=== PATIENT | male | born 1960 | race Caucasian/White ===

== ENCOUNTER → 2016-06-27 | Outpatient (CLI) | payer OTHER ==
[~2016-06-27] VITALS: Ht 193 cm; Wt 90.6 kg
[~2016-06-27] MED LIST: CEPH500 PO; FOLI1 PO; GABA-531 PO; HYDR25TA PO; LISI-662 PO; METO-325 PO; OMEP20 PO; SULF1TAB42 PO; TAPE50TA2 PO; TNFMISC
[2016-06-27 09:17] VITALS: BP 157/80
== END | disposition home or self-care (01) ==
LOC: HBOWC 08:41
PROVIDERS: ATTEND Emergency Medicine
DX: L97.521 Non-pressure chronic ulcer of other part of left foot limited to breakdown of skin (principal); L84 Corns and callosities; I10 Essential (primary) hypertension; G62.9 Polyneuropathy, unspecified; B35.1 Tinea unguium; I25.10 Atherosclerotic heart disease of native coronary artery without angina pectoris; F32.9 Major depressive disorder, single episode, unspecified; Z87.891 Personal history of nicotine dependence; M21.41 Flat foot [pes planus] (acquired), right foot; F10.10 Alcohol abuse, uncomplicated; M79.675 Pain in left toe(s)
CPT/HCPCS: 11055; 97597

== ENCOUNTER → 2016-07-05 | Outpatient (CLI) | payer OTHER ==
[2016-07-05 13:53] VITALS: BP 134/73
== END | disposition home or self-care (01) ==
LOC: HBOWC 10:59
PROVIDERS: ATTEND Emergency Medicine
DX: L97.521 Non-pressure chronic ulcer of other part of left foot limited to breakdown of skin (principal); I10 Essential (primary) hypertension; I73.9 Peripheral vascular disease, unspecified; G62.9 Polyneuropathy, unspecified; F32.9 Major depressive disorder, single episode, unspecified; L84 Corns and callosities; B35.1 Tinea unguium; Z87.891 Personal history of nicotine dependence; F10.10 Alcohol abuse, uncomplicated; M21.41 Flat foot [pes planus] (acquired), right foot
CPT/HCPCS: 97597

== ENCOUNTER → 2016-07-19 | Outpatient (CLI) | payer OTHER ==
[2016-07-19 11:37] VITALS: BP 123/77
== END | disposition home or self-care (01) ==
LOC: HBOWC 11:20
PROVIDERS: ATTEND Emergency Medicine
DX: L97.521 Non-pressure chronic ulcer of other part of left foot limited to breakdown of skin (principal); L84 Corns and callosities; I10 Essential (primary) hypertension; I25.10 Atherosclerotic heart disease of native coronary artery without angina pectoris; I73.9 Peripheral vascular disease, unspecified; B35.1 Tinea unguium; M21.41 Flat foot [pes planus] (acquired), right foot; F32.9 Major depressive disorder, single episode, unspecified; Z87.891 Personal history of nicotine dependence; F10.10 Alcohol abuse, uncomplicated
CPT/HCPCS: 97597

== ENCOUNTER → 2016-08-01 | Outpatient (CLI) | payer OTHER ==
[2016-08-01 11:26] VITALS: BP 117/62
== END | disposition home or self-care (01) ==
LOC: HBOWC 10:55
PROVIDERS: ATTEND Emergency Medicine Undersea and Hyperbaric Medicine
DX: L97.521 Non-pressure chronic ulcer of other part of left foot limited to breakdown of skin (principal); F10.10 Alcohol abuse, uncomplicated; L84 Corns and callosities; I10 Essential (primary) hypertension; F32.9 Major depressive disorder, single episode, unspecified; I73.9 Peripheral vascular disease, unspecified; B35.1 Tinea unguium; G62.9 Polyneuropathy, unspecified; Z87.891 Personal history of nicotine dependence
CPT/HCPCS: 97597

== ENCOUNTER → 2016-08-16 | Outpatient (CLI) | payer OTHER ==
[~2016-08-16] MED LIST changes: -CEPH500 PO; -SULF1TAB42 PO
[2016-08-16 11:14] VITALS: BP 132/78
== END | disposition home or self-care (01) ==
LOC: HBOWC 10:40
PROVIDERS: ATTEND Emergency Medicine
DX: L97.521 Non-pressure chronic ulcer of other part of left foot limited to breakdown of skin (principal); G62.9 Polyneuropathy, unspecified; L84 Corns and callosities; B35.1 Tinea unguium; I10 Essential (primary) hypertension; F32.9 Major depressive disorder, single episode, unspecified; I73.9 Peripheral vascular disease, unspecified; F10.10 Alcohol abuse, uncomplicated; M21.41 Flat foot [pes planus] (acquired), right foot; Z87.891 Personal history of nicotine dependence
CPT/HCPCS: 97597

== ENCOUNTER → 2016-08-31 | Outpatient (CLI) | payer OTHER ==
[~2016-08-31] MED LIST changes: +SULF1TAB42 PO
[2016-08-31 10:13] VITALS: BP 129/79
== END | disposition home or self-care (01) ==
LOC: HBOWC 10:12
PROVIDERS: ATTEND Emergency Medicine
DX: L97.521 Non-pressure chronic ulcer of other part of left foot limited to breakdown of skin (principal); S90.424D Blister (nonthermal), right lesser toe(s), subsequent encounter; F10.10 Alcohol abuse, uncomplicated; I10 Essential (primary) hypertension; I73.9 Peripheral vascular disease, unspecified; G62.9 Polyneuropathy, unspecified; L84 Corns and callosities; B35.1 Tinea unguium; X58.XXXD Exposure to other specified factors, subsequent encounter; Z87.891 Personal history of nicotine dependence
CPT/HCPCS: 97597

== ENCOUNTER → 2016-09-14 | Outpatient (CLI) | payer OTHER ==
[~2016-09-14] MED LIST changes: -SULF1TAB42 PO
[2016-09-14 10:18] VITALS: BP 127/71
== END | disposition home or self-care (01) ==
LOC: HBOWC 09:52
PROVIDERS: ATTEND Emergency Medicine
DX: L97.521 Non-pressure chronic ulcer of other part of left foot limited to breakdown of skin (principal); S90.424D Blister (nonthermal), right lesser toe(s), subsequent encounter; L84 Corns and callosities; B35.1 Tinea unguium; F10.10 Alcohol abuse, uncomplicated; I10 Essential (primary) hypertension; I73.9 Peripheral vascular disease, unspecified; F32.9 Major depressive disorder, single episode, unspecified; M21.41 Flat foot [pes planus] (acquired), right foot; Z87.891 Personal history of nicotine dependence; X58.XXXD Exposure to other specified factors, subsequent encounter
CPT/HCPCS: 97597

== ENCOUNTER → 2016-09-28 | Outpatient (CLI) | payer OTHER ==
[2016-09-28 10:23] VITALS: BP 137/72
== END | disposition home or self-care (01) ==
LOC: HBOWC 09:51
PROVIDERS: ATTEND Emergency Medicine
DX: L97.521 Non-pressure chronic ulcer of other part of left foot limited to breakdown of skin (principal); B35.1 Tinea unguium; L84 Corns and callosities; I10 Essential (primary) hypertension; I73.9 Peripheral vascular disease, unspecified; F32.9 Major depressive disorder, single episode, unspecified; F10.10 Alcohol abuse, uncomplicated; M21.41 Flat foot [pes planus] (acquired), right foot; Z87.891 Personal history of nicotine dependence
CPT/HCPCS: 97597

== ENCOUNTER → 2016-10-12 | Outpatient (CLI) | payer OTHER ==
[~2016-10-12] MED LIST changes: +SULF1TAB42 PO
[2016-10-12 10:19] VITALS: BP 145/76
== END | disposition home or self-care (01) ==
LOC: HBOWC 09:29
PROVIDERS: ATTEND Emergency Medicine
DX: L97.521 Non-pressure chronic ulcer of other part of left foot limited to breakdown of skin (principal); I10 Essential (primary) hypertension; F32.9 Major depressive disorder, single episode, unspecified; L84 Corns and callosities; M21.41 Flat foot [pes planus] (acquired), right foot; Z87.891 Personal history of nicotine dependence; F10.10 Alcohol abuse, uncomplicated
CPT/HCPCS: 97597

== ENCOUNTER → 2016-10-26 | Outpatient (CLI) | payer OTHER ==
[~2016-10-26] MED LIST changes: -SULF1TAB42 PO
[2016-10-26 09:28] VITALS: BP 142/81
== END | disposition home or self-care (01) ==
LOC: HBOWC 08:57
PROVIDERS: ATTEND Emergency Medicine
DX: L97.521 Non-pressure chronic ulcer of other part of left foot limited to breakdown of skin (principal); M21.41 Flat foot [pes planus] (acquired), right foot; F32.9 Major depressive disorder, single episode, unspecified; B35.1 Tinea unguium; I73.9 Peripheral vascular disease, unspecified; Z87.891 Personal history of nicotine dependence; F10.10 Alcohol abuse, uncomplicated; L84 Corns and callosities
CPT/HCPCS: 97597

== ENCOUNTER → 2016-11-09 | Outpatient (CLI) | payer OTHER ==
[2016-11-09 11:22] VITALS: BP 111/65
== END | disposition home or self-care (01) ==
LOC: HBOWC 09:46
PROVIDERS: ATTEND Emergency Medicine
DX: L97.521 Non-pressure chronic ulcer of other part of left foot limited to breakdown of skin (principal); L84 Corns and callosities; G62.9 Polyneuropathy, unspecified; F10.10 Alcohol abuse, uncomplicated; M21.41 Flat foot [pes planus] (acquired), right foot; F32.9 Major depressive disorder, single episode, unspecified; I73.9 Peripheral vascular disease, unspecified; Z87.891 Personal history of nicotine dependence; B35.1 Tinea unguium; I10 Essential (primary) hypertension
CPT/HCPCS: 97597

== ENCOUNTER → 2016-11-23 | Outpatient (CLI) | payer OTHER ==
[~2016-11-23] MED LIST changes: +SULF1TAB42 PO
[2016-11-23 10:53] VITALS: BP 124/63
== END | disposition home or self-care (01) ==
LOC: HBOWC 09:46
PROVIDERS: ATTEND Emergency Medicine
DX: L97.521 Non-pressure chronic ulcer of other part of left foot limited to breakdown of skin (principal); F32.9 Major depressive disorder, single episode, unspecified; I73.9 Peripheral vascular disease, unspecified; L84 Corns and callosities; M21.41 Flat foot [pes planus] (acquired), right foot; B35.1 Tinea unguium; I10 Essential (primary) hypertension; Z87.891 Personal history of nicotine dependence; F10.10 Alcohol abuse, uncomplicated
CPT/HCPCS: 97597

== ENCOUNTER → 2016-12-07 | Outpatient (CLI) | payer OTHER ==
[2016-12-07 10:17] VITALS: BP 102/54
== END | disposition home or self-care (01) ==
LOC: HBOWC 09:56
PROVIDERS: ATTEND Emergency Medicine Undersea and Hyperbaric Medicine
DX: L97.521 Non-pressure chronic ulcer of other part of left foot limited to breakdown of skin (principal); F10.10 Alcohol abuse, uncomplicated; L84 Corns and callosities; I10 Essential (primary) hypertension; F32.9 Major depressive disorder, single episode, unspecified; G62.9 Polyneuropathy, unspecified; L60.3 Nail dystrophy; B35.1 Tinea unguium; M79.675 Pain in left toe(s); Z87.891 Personal history of nicotine dependence; M21.41 Flat foot [pes planus] (acquired), right foot
CPT/HCPCS: 11055; 97597

== ENCOUNTER → 2017-01-18 | Outpatient (CLI) | payer OTHER ==
[~2017-01-18] MED LIST changes: +AMMO225L14 TP
[2017-01-18 11:21] VITALS: BP 158/85
== END | disposition home or self-care (01) ==
LOC: HBOWC 10:44
PROVIDERS: ATTEND Emergency Medicine
DX: L97.521 Non-pressure chronic ulcer of other part of left foot limited to breakdown of skin (principal); L97.511 Non-pressure chronic ulcer of other part of right foot limited to breakdown of skin; F10.10 Alcohol abuse, uncomplicated; L84 Corns and callosities; L60.3 Nail dystrophy; G62.9 Polyneuropathy, unspecified; B35.1 Tinea unguium; I10 Essential (primary) hypertension; F32.9 Major depressive disorder, single episode, unspecified; Z87.891 Personal history of nicotine dependence
CPT/HCPCS: 97597

== ENCOUNTER → 2017-02-02 | Outpatient (CLI) | payer OTHER ==
[~2017-02-02] MED LIST changes: -SULF1TAB42 PO
[2017-02-02 13:57] VITALS: BP 154/78
== END | disposition home or self-care (01) ==
LOC: HBOWC 13:42
PROVIDERS: ATTEND Emergency Medicine Undersea and Hyperbaric Medicine
DX: L97.521 Non-pressure chronic ulcer of other part of left foot limited to breakdown of skin (principal); L97.511 Non-pressure chronic ulcer of other part of right foot limited to breakdown of skin; F10.10 Alcohol abuse, uncomplicated; L84 Corns and callosities; I10 Essential (primary) hypertension; F32.9 Major depressive disorder, single episode, unspecified; Z87.891 Personal history of nicotine dependence; B35.1 Tinea unguium
CPT/HCPCS: 97597

== ENCOUNTER → 2017-02-16 | Outpatient (CLI) | payer OTHER ==
[~2017-02-16] MED LIST changes: -METO-325 PO; +METO50TA12 PO
[2017-02-16 11:00] VITALS: BP 156/81
== END | disposition home or self-care (01) ==
LOC: HBOWC 10:55
PROVIDERS: ATTEND Emergency Medicine
DX: L97.521 Non-pressure chronic ulcer of other part of left foot limited to breakdown of skin (principal); L97.511 Non-pressure chronic ulcer of other part of right foot limited to breakdown of skin; B35.1 Tinea unguium; L60.3 Nail dystrophy; G62.9 Polyneuropathy, unspecified; L84 Corns and callosities; I10 Essential (primary) hypertension; F10.10 Alcohol abuse, uncomplicated; F32.9 Major depressive disorder, single episode, unspecified; Z87.891 Personal history of nicotine dependence
CPT/HCPCS: 11042

== ENCOUNTER → 2017-03-02 | Outpatient (CLI) | payer OTHER ==
[~2017-03-02] MED LIST changes: +CEPH500 PO; +CIPR-278 PO; +LIDOCAINE HCL 2% 5 ML JELLY TP ONE; +METO-558 PO; -METO50TA12 PO
[2017-03-02 11:33] VITALS: BP 134/72
== END | disposition home or self-care (01) ==
LOC: HBOWC 10:56
PROVIDERS: ATTEND Emergency Medicine
DX: L97.521 Non-pressure chronic ulcer of other part of left foot limited to breakdown of skin (principal); L97.511 Non-pressure chronic ulcer of other part of right foot limited to breakdown of skin; I10 Essential (primary) hypertension; F32.9 Major depressive disorder, single episode, unspecified; G62.9 Polyneuropathy, unspecified; L84 Corns and callosities; F10.10 Alcohol abuse, uncomplicated; Z87.891 Personal history of nicotine dependence
CPT/HCPCS: 11042

== ENCOUNTER → 2017-03-12 | Outpatient (CLI) | payer OTHER ==
[~2017-03-12] MED LIST changes: -LIDOCAINE HCL 2% 5 ML JELLY TP ONE
[2017-03-12 10:41] VITALS: BP 158/84
== END | disposition home or self-care (01) ==
LOC: HBOWC 08:39
PROVIDERS: ATTEND Surgery Plastic and Reconstructive Surgery
DX: L97.521 Non-pressure chronic ulcer of other part of left foot limited to breakdown of skin (principal); L97.511 Non-pressure chronic ulcer of other part of right foot limited to breakdown of skin; F10.10 Alcohol abuse, uncomplicated; L84 Corns and callosities; I10 Essential (primary) hypertension; F32.9 Major depressive disorder, single episode, unspecified; Z87.891 Personal history of nicotine dependence; B35.1 Tinea unguium
CPT/HCPCS: 11042

== ENCOUNTER → 2017-03-19 | Outpatient (CLI) | payer OTHER ==
[~2017-03-19] MED LIST changes: -CIPR-278 PO; +COLLAGENASE 250 UNITS/GM 30 GM OINTMENT TP ONE; +LIDOCAINE HCL 2% 5 ML JELLY TP ONE
[2017-03-19 10:41] VITALS: BP 159/90
== END | disposition home or self-care (01) ==
LOC: HBOWC 10:30
PROVIDERS: ATTEND Surgery Plastic and Reconstructive Surgery
DX: S91.102D Unspecified open wound of left great toe without damage to nail, subsequent encounter (principal); S91.101D Unspecified open wound of right great toe without damage to nail, subsequent encounter; B35.1 Tinea unguium; G62.9 Polyneuropathy, unspecified; L60.3 Nail dystrophy; L84 Corns and callosities; I10 Essential (primary) hypertension; F32.9 Major depressive disorder, single episode, unspecified; F10.10 Alcohol abuse, uncomplicated; X58.XXXD Exposure to other specified factors, subsequent encounter
CPT/HCPCS: 11042; Z7610

== ENCOUNTER → 2017-03-27 | Outpatient (CLI) | payer OTHER ==
[~2017-03-27] MED LIST changes: -COLLAGENASE 250 UNITS/GM 30 GM OINTMENT TP ONE; -LIDOCAINE HCL 2% 5 ML JELLY TP ONE
[2017-03-27 09:10] VITALS: BP 126/79
== END | disposition home or self-care (01) ==
LOC: HBOWC 08:55
PROVIDERS: ATTEND Emergency Medicine
DX: L97.521 Non-pressure chronic ulcer of other part of left foot limited to breakdown of skin (principal); L97.511 Non-pressure chronic ulcer of other part of right foot limited to breakdown of skin; G62.9 Polyneuropathy, unspecified; F10.10 Alcohol abuse, uncomplicated; L84 Corns and callosities; I10 Essential (primary) hypertension; F32.9 Major depressive disorder, single episode, unspecified; L60.3 Nail dystrophy; B35.1 Tinea unguium; Z87.891 Personal history of nicotine dependence
CPT/HCPCS: 11042

== ENCOUNTER → 2017-04-03 | Outpatient (CLI) | payer OTHER ==
[~2017-04-03] MED LIST changes: -CEPH500 PO
[2017-04-03 10:28] VITALS: BP 156/87
== END | disposition home or self-care (01) ==
LOC: HBOWC 10:07
PROVIDERS: ATTEND Emergency Medicine
DX: L97.521 Non-pressure chronic ulcer of other part of left foot limited to breakdown of skin (principal); G62.9 Polyneuropathy, unspecified; L84 Corns and callosities; I10 Essential (primary) hypertension; F32.9 Major depressive disorder, single episode, unspecified; F10.10 Alcohol abuse, uncomplicated; Z87.891 Personal history of nicotine dependence

== ENCOUNTER → 2017-04-13 | Outpatient (CLI) | payer OTHER ==
[2017-04-13 09:45] VITALS: BP 144/77
== END | disposition home or self-care (01) ==
LOC: HBOWC 08:51
PROVIDERS: ATTEND Emergency Medicine
DX: L97.521 Non-pressure chronic ulcer of other part of left foot limited to breakdown of skin (principal); F10.10 Alcohol abuse, uncomplicated; I10 Essential (primary) hypertension; F32.9 Major depressive disorder, single episode, unspecified; G62.9 Polyneuropathy, unspecified; L84 Corns and callosities; Z87.891 Personal history of nicotine dependence

== ENCOUNTER → 2017-04-24 | Outpatient (CLI) | payer OTHER ==
[2017-04-24 09:59] VITALS: BP 135/77
== END | disposition home or self-care (01) ==
LOC: HBOWC 09:46
PROVIDERS: ATTEND Emergency Medicine
DX: L97.521 Non-pressure chronic ulcer of other part of left foot limited to breakdown of skin (principal); G62.9 Polyneuropathy, unspecified; L84 Corns and callosities; I10 Essential (primary) hypertension; F32.9 Major depressive disorder, single episode, unspecified; L60.3 Nail dystrophy; B35.1 Tinea unguium; F10.10 Alcohol abuse, uncomplicated; Z87.891 Personal history of nicotine dependence
CPT/HCPCS: 11042

== ENCOUNTER → 2017-05-24 | Outpatient (CLI) | payer OTHER ==
[2017-05-24 10:55] VITALS: BP 132/75
== END | disposition home or self-care (01) ==
LOC: HBOWC 10:13
PROVIDERS: ATTEND Nurse Practitioner Adult Health
DX: L97.521 Non-pressure chronic ulcer of other part of left foot limited to breakdown of skin (principal); L84 Corns and callosities; I10 Essential (primary) hypertension; F32.9 Major depressive disorder, single episode, unspecified; G62.9 Polyneuropathy, unspecified; F10.10 Alcohol abuse, uncomplicated; Z87.891 Personal history of nicotine dependence
CPT/HCPCS: 11042

== ENCOUNTER → 2017-05-31 | Outpatient (CLI) | payer OTHER ==
[~2017-05-31] MED LIST changes: +LIDOCAINE HCL 2% 5 ML JELLY TP ONE
[2017-05-31 10:41] VITALS: BP 134/80
== END | disposition home or self-care (01) ==
LOC: HBOWC 10:19
PROVIDERS: ATTEND Nurse Practitioner Adult Health
DX: L97.521 Non-pressure chronic ulcer of other part of left foot limited to breakdown of skin (principal); F10.10 Alcohol abuse, uncomplicated; F32.9 Major depressive disorder, single episode, unspecified; G62.9 Polyneuropathy, unspecified; B35.1 Tinea unguium; L84 Corns and callosities; I10 Essential (primary) hypertension; Z87.891 Personal history of nicotine dependence
CPT/HCPCS: 11042

== ENCOUNTER → 2017-06-12 | Outpatient (CLI) | payer OTHER ==
[~2017-06-12] MED LIST changes: +CHLORHEXIDINE GLUCONATE 4% 118 ML TOPICAL LIQUID TP ONE; -LIDOCAINE HCL 2% 5 ML JELLY TP ONE
[2017-06-12 13:46] VITALS: BP 126/66
== END | disposition home or self-care (01) ==
LOC: HBOWC 12:56
PROVIDERS: ATTEND Emergency Medicine
DX: L97.521 Non-pressure chronic ulcer of other part of left foot limited to breakdown of skin (principal); I10 Essential (primary) hypertension; F32.9 Major depressive disorder, single episode, unspecified; G62.9 Polyneuropathy, unspecified; F10.10 Alcohol abuse, uncomplicated; Z87.891 Personal history of nicotine dependence
CPT/HCPCS: 97597

== ENCOUNTER → 2017-06-28 | Outpatient (CLI) | payer OTHER ==
[~2017-06-28] MED LIST changes: +AMLO-511 PO; -CHLORHEXIDINE GLUCONATE 4% 118 ML TOPICAL LIQUID TP ONE; +CYAN250014 PO; +THIA100 PO; +VITA1TAB22 PO
[2017-06-28 10:49] VITALS: BP 137/72
== END | disposition home or self-care (01) ==
LOC: HBOWC 10:36
PROVIDERS: ATTEND Nurse Practitioner Adult Health
DX: S91.102D Unspecified open wound of left great toe without damage to nail, subsequent encounter (principal); L84 Corns and callosities; G62.9 Polyneuropathy, unspecified; F10.10 Alcohol abuse, uncomplicated; I10 Essential (primary) hypertension; F32.9 Major depressive disorder, single episode, unspecified; Z87.891 Personal history of nicotine dependence; X58.XXXD Exposure to other specified factors, subsequent encounter
CPT/HCPCS: 97597

== ENCOUNTER → 2017-07-05 | Outpatient (CLI) | payer OTHER ==
[~2017-07-05] MED LIST changes: -AMMO225L14 TP; +AMPI250C11 PO; -CYAN250014 PO; +LIDOCAINE HCL 2% 5 ML JELLY TP ONE; -LISI-662 PO; -TAPE50TA2 PO; -TNFMISC; -VITA1TAB22 PO
[2017-07-05 14:18] VITALS: BP 146/77
== END | disposition home or self-care (01) ==
LOC: HBOWC 13:27
PROVIDERS: ATTEND Nurse Practitioner Adult Health
DX: L97.521 Non-pressure chronic ulcer of other part of left foot limited to breakdown of skin (principal); L84 Corns and callosities; I10 Essential (primary) hypertension; F32.9 Major depressive disorder, single episode, unspecified; G62.9 Polyneuropathy, unspecified; F10.10 Alcohol abuse, uncomplicated; Z87.891 Personal history of nicotine dependence
CPT/HCPCS: 11042

== ENCOUNTER → 2017-07-17 | Outpatient (CLI) | payer OTHER ==
[~2017-07-17] MED LIST changes: -LIDOCAINE HCL 2% 5 ML JELLY TP ONE
[2017-07-17 10:22] VITALS: BP 134/74
== END | disposition home or self-care (01) ==
LOC: HBOWC 09:48
PROVIDERS: ATTEND Emergency Medicine
DX: L97.521 Non-pressure chronic ulcer of other part of left foot limited to breakdown of skin (principal); I10 Essential (primary) hypertension; F32.9 Major depressive disorder, single episode, unspecified; G62.9 Polyneuropathy, unspecified; L84 Corns and callosities; F10.10 Alcohol abuse, uncomplicated; Z87.891 Personal history of nicotine dependence
CPT/HCPCS: 11042

== ENCOUNTER → 2017-07-24 | Outpatient (CLI) | payer OTHER ==
[~2017-07-24] MED LIST changes: -AMPI250C11 PO
[2017-07-24 11:24] VITALS: BP 141/69
== END | disposition home or self-care (01) ==
LOC: HBOWC 10:52
PROVIDERS: ATTEND Emergency Medicine
DX: L97.521 Non-pressure chronic ulcer of other part of left foot limited to breakdown of skin (principal); I10 Essential (primary) hypertension; L84 Corns and callosities; G62.9 Polyneuropathy, unspecified; F32.9 Major depressive disorder, single episode, unspecified; F10.10 Alcohol abuse, uncomplicated; Z87.891 Personal history of nicotine dependence
CPT/HCPCS: 11042

== ENCOUNTER → 2017-08-07 | Outpatient (CLI) | payer OTHER ==
[2017-08-07 11:06] VITALS: BP 140/78
== END | disposition home or self-care (01) ==
LOC: HBOWC 10:41
PROVIDERS: ATTEND Emergency Medicine
DX: L97.521 Non-pressure chronic ulcer of other part of left foot limited to breakdown of skin (principal); I10 Essential (primary) hypertension; F32.9 Major depressive disorder, single episode, unspecified; G62.9 Polyneuropathy, unspecified; L84 Corns and callosities; F10.10 Alcohol abuse, uncomplicated; Z87.891 Personal history of nicotine dependence
CPT/HCPCS: 11042

== ENCOUNTER → 2017-08-14 | Outpatient (CLI) | payer OTHER ==
[2017-08-14 14:58] VITALS: BP 122/65
== END | disposition home or self-care (01) ==
LOC: HBOWC 13:34
PROVIDERS: ATTEND Podiatrist
DX: L97.521 Non-pressure chronic ulcer of other part of left foot limited to breakdown of skin (principal); I10 Essential (primary) hypertension; F32.9 Major depressive disorder, single episode, unspecified; G62.9 Polyneuropathy, unspecified; F10.10 Alcohol abuse, uncomplicated; Z87.891 Personal history of nicotine dependence
CPT/HCPCS: 11042

== ENCOUNTER → 2017-08-21 | Outpatient (CLI) | payer OTHER ==
[2017-08-21 10:06] VITALS: BP 136/72
== END | disposition home or self-care (01) ==
LOC: HBOWC 09:44
PROVIDERS: ATTEND Emergency Medicine
DX: L97.521 Non-pressure chronic ulcer of other part of left foot limited to breakdown of skin (principal); I10 Essential (primary) hypertension; F32.9 Major depressive disorder, single episode, unspecified; G62.9 Polyneuropathy, unspecified; Z87.891 Personal history of nicotine dependence; F10.10 Alcohol abuse, uncomplicated
CPT/HCPCS: 97597

== ENCOUNTER → 2017-08-28 | Outpatient (CLI) | payer OTHER ==
[2017-08-28 10:19] VITALS: BP 139/72
== END | disposition home or self-care (01) ==
LOC: HBOWC 10:06
PROVIDERS: ATTEND Emergency Medicine
DX: L97.521 Non-pressure chronic ulcer of other part of left foot limited to breakdown of skin (principal); L84 Corns and callosities; I10 Essential (primary) hypertension; F32.9 Major depressive disorder, single episode, unspecified; G62.9 Polyneuropathy, unspecified; F10.10 Alcohol abuse, uncomplicated; Z87.891 Personal history of nicotine dependence